=== PATIENT | male | born 1950 | race Native Hawaiian/Other Pacific Islander ===

== ENCOUNTER 2016-09-17 10:21 | Outpatient (CLI) | payer OTHER ==
[~2016-09-17 10:21] MED LIST: AMBIEN5 MG PO; ASA LO-DOSE81 MG PO; DIOVAN HCT160 MG/25 PO; LIPITOR10 MG PO; METOPROLOL25 M1 OR; PEPCID20 MG OR
== END 2016-09-17 11:30 | disposition home or self-care (01) ==
LOC: US 10:21
DX: R60.0 Localized edema (principal)

== ENCOUNTER 2018-07-20 12:05 | Outpatient (CLI) | payer OTHER | END 2018-07-20 21:06 | disposition home or self-care (01) | LOC: LABW 12:05 | DX: B35.1 Tinea unguium (principal) | CPT/HCPCS: 36415; 84450; 84460 ==

== ENCOUNTER 2018-09-07 12:12 | Outpatient (CLI) | payer OTHER | END 2018-09-07 19:45 | disposition home or self-care (01) | LOC: LABW 12:12 | DX: B35.1 Tinea unguium (principal) | CPT/HCPCS: 36415; 84450; 84460 ==

== ENCOUNTER 2019-02-28 09:58 | Outpatient (CLI) | payer OTHER | END 2019-02-28 20:33 | disposition home or self-care (01) | LOC: LABW 09:58 | DX: K59.1 Functional diarrhea (principal) | CPT/HCPCS: 82272; 82705; 83630; 87015; 87045; 87324; 87328; 87329; 87449; 87899 ==

== ENCOUNTER 2019-03-03 08:21 | Emergency (ER) | payer OTHER ==
[~2019-03-03] VITALS: Ht 177.8 cm; Wt 106.6 kg
[2019-03-03 08:30] VITALS: BP 151/60; TEMP 98
== END 2019-03-03 09:47 | disposition home or self-care (01) ==
LOC: ED 08:21
DX: S61.431A Puncture wound without foreign body of right hand, initial encounter (principal); W55.01XA Bitten by cat, initial encounter; Y92.89 Other specified places as the place of occurrence of the external cause
CPT/HCPCS: 90471; 90715; 96372; 96373; 99283; J0696; J7040

== ENCOUNTER 2020-06-11 09:18 | Outpatient (CLI) | payer OTHER | END 2020-06-11 22:08 | disposition home or self-care (01) | LOC: INF 09:18 | PROVIDERS: ATTEND Internal Medicine | DX: Z23 Encounter for immunization (principal) | CPT/HCPCS: 96372 ==

== ENCOUNTER 2020-07-03 09:24 | Outpatient (CLI) | payer OTHER | END 2020-07-03 22:16 | disposition home or self-care (01) | LOC: INF 09:24 | PROVIDERS: ATTEND Internal Medicine | DX: Z23 Encounter for immunization (principal) | CPT/HCPCS: 96372 ==

== ENCOUNTER 2020-10-28 15:01 | Outpatient (CLI) | payer OTHER ==
[2020-10-28 15:23] LABS: PLATELET COUNT 233 K/uL (142-355)
[2020-10-28 16:09] LABS: POTASSIUM 3.1 mmol/L (3.6-5.2)
== END 2020-10-28 19:25 | disposition home or self-care (01) ==
LOC: LAB 15:01
PROVIDERS: ATTEND Internal Medicine Endocrinology, Diabetes & Metabolism
DX: I10 Essential (primary) hypertension (principal); E53.8 Deficiency of other specified B group vitamins; G47.09 Other insomnia; E78.49 Other hyperlipidemia; R53.83 Other fatigue; H91.90 Unspecified hearing loss, unspecified ear; G47.8 Other sleep disorders; H93.19 Tinnitus, unspecified ear; M62.81 Muscle weakness (generalized); M25.50 Pain in unspecified joint; R41.3 Other amnesia; R26.89 Other abnormalities of gait and mobility; E55.9 Vitamin D deficiency, unspecified; Z79.899 Other long term (current) drug therapy
CPT/HCPCS: 80053; 80061; 82043; 82306; 82570; 83036; 83525; 84681; 85027

== ENCOUNTER 2021-09-01 14:01 | Outpatient (CLI) | payer OTHER | END 2021-09-01 18:54 | disposition home or self-care (01) | LOC: US 14:01 | PROVIDERS: ATTEND Internal Medicine | DX: R10.31 Right lower quadrant pain (principal); R60.0 Localized edema ==

== ENCOUNTER 2022-11-16 11:10 | Outpatient (CLI) | payer OTHER | END 2022-11-16 19:16 | disposition home or self-care (01) | LOC: RAD 11:10 | PROVIDERS: ATTEND Internal Medicine | DX: M54.17 Radiculopathy, lumbosacral region (principal) ==